=== PATIENT | male | born 1995 | race Caucasian/White ===

== ENCOUNTER 2020-05-17 07:33 | Emergency (ER) | payer BC, SELFPAY ==
[2020-05-17] VITALS (8 sets, daily range): BP systolic 106–144; BP diastolic 71–90; PULSE 70–97; RESP 16–18; TEMP 36.7; O2SAT 95–99; BMI 27.1
--- NOTE | 2020-05-17 07:24 | ECG_ITS ---
APPROVED REPORT Exam: Resting ECG HR:89 bpm ECG Measurements Heart Rate 89 AXES OR 142 P 60 QRSd 88 QRS 61 QT 360 T 50 QTc 438 Conclusion Normal sinus rhythm Normal ECG Electronically signed by : Saul Alvarez, 05/18/2020 11:42:18
[2020-05-17 07:57] LABS: Basophils # 0.1 K/mm3 (0-0.2); Basophils % 0.6 % (0.1-2.0); Eosinophils # 0.2 K/mm3 (0.0-0.4); Eosinophils % 2.2 % (0.1-12.0); Lymphocytes # 3.5 K/mm3 (0.7-4.5); Lymphocytes % 36.8 % (10-50); Mean Corpuscular HGB Conc 33.4 g/dL (31.8-35.4); Mean Corpuscular Hemoglobin 29.3 pg (27.0-31.2); Mean Corpuscular Volume 87.9 fl (80-94); Mean Platelet Volume 7.7 fl (7.4-10.4); Monocytes # 0.5 K/mm3 (0.1-1.0); Monocytes % 5.3 % (1.7-9.3); Neutrophils # 5.3 K/mm3 (1.8-7.8); Neutrophils % 55.2 % (37.0-80.0); Platelet Count 250 K/mm3 (142-424); Red Blood Count 5.46 M/mm3 (4.60-6.20); Red Cell Distribution Width 13.1 % (11.5-17.5); White Blood Count 9.6 K/mm3 (4.8-10.8)
--- NOTE | 2020-05-17 07:58 | XR_ITS ---
PROCEDURE: XR CHEST 2V CLINICAL HISTORY: soa COMPARISON: No exams were available for comparison FINDINGS: The cardiomediastinal silhouette and pulmonary vascularity are within normal limits. The lungs are clear without infiltrates, suspicious nodules, or pleural effusions. No acute bony abnormalities. IMPRESSION: No acute findings. Dictated by: Abiel Hilton MD 05/17/2020 08:21 Abiel Hilton MD in [place] 05/17/2020 08:21
[2020-05-17 08:20] LABS: Troponin I < 0.01 ng/ml (0.00-0.034)
--- NOTE | 2020-05-17 08:28 | HMH.EDGENADL ---
ED Disposition Clinical Impression: Chest heaviness Dyspnea Qualifiers: Dyspnea type: shortness of breath Qualified Code(s): R06.02 - Shortness of breath Disposition: Home, Self-Care Condition on Discharge: Good Instructions: DI for Shortness of Breath, DI for Chest Pain Additional Instructions: Additional instructions for SHORTNESS OF BREATH: See your physician as soon as possible for further evaluation. Return immediately if worsening shortness of breath or if vomiting, chest pain, fever, coughing of blood, or passing out. Additional instructions for CHEST PAIN: See your physician as soon as possible for further evaluation. Return immediately if worsening chest pain, vomiting, shortness of breath, fever, coughing of blood. Referrals: PCP,No [Primary Care Provider] - - Critical Care Critical Care Time: No Attestation: On 05/17/20, the high probability of a clinically significant, sudden or life threatening deterioration of the following system(s) required my full and direct attention, intervention and personal management. The time I documented below is in addition to time spent performing reported procedures but includes the following listed in this critical care notation. Medical Decision Making - Ken Inquiry Pt receiving controlled substance: No Vital Signs: 05/17/20 07:33 05/17/20 07:52 05/17/20 08:00 Temperature 98.0 F Temperature Source Oral Pulse Rate Pulse Rate [Right] 97 H 76 72 Respiratory Rate 16 Blood Pressure Blood Pressure [Right Arm] 144/90 H 129/76 132/78 Blood Pressure Mean Blood Pressure Mean [Right Arm] 108 93 96 Blood Pressure Source [Right Arm] Automatic Cuff Automatic Cuff Automatic Cuff Blood Pressure Position [Right Arm] Sitting Sitting Sitting 02 Sat by Pulse Oximetry 95 96 95 Oxygen Delivery Method Room Air Room Air Room Air 05/17/20 08:31 05/17/20 08:50 05/17/20 08:54 Temperature Temperature Source Pulse Rate 75 Pulse Rate [Right] 79 70 Respiratory Rate Blood Pressure Blood Pressure [Right Arm] 118/84 106/79 L Blood Pressure Mean Blood Pressure Mean [Right Arm] 95 88 Blood Pressure Source [Right Arm] Automatic Cuff Automatic Cuff Blood Pressure Position [Right Arm] Sitting Sitting 02 Sat by Pulse Oximetry 96 95 97 Oxygen Delivery Method Room Air Room Air 05/17/20 08:55 Temperature Temperature Source Pulse Rate Pulse Rate [Right] Respiratory Rate Blood Pressure 119/76 Blood Pressure [Right Arm] Blood Pressure Mean 84 Blood Pressure Mean [Right Arm] Blood Pressure Source [Right Arm] Blood Pressure Position [Right Arm] 02 Sat by Pulse Oximetry Oxygen Delivery Method - Lab Data Lab Results 05/17/20 07:30: WBC 9.6, RBC 5.46, Hgb 16.0, Hct 48.0, MCV 87.9, MCH 29.3, MCHC 33.4, RDW 13.1, Plt Count 250, MPV 7.7, Neut % (Auto) 55.2, Lymph % (Auto) 36.8, [place] % (Auto) 5.3, Eos % (Auto) 2.2, Baso % (Auto) 0.6, Neut # (Auto) 5.3, Lymph # (Auto) 3.5, [place] # (Auto) 0.5, Eos # (Auto) 0.2, Baso # (Auto) 0.1 05/17/20 07:30: Sodium 139, Potassium 4.1, Chloride 108 H, Carbon Dioxide 22, Anion Gap 13.1, BUN 8 L, Creatinine 0.80, Estimated Creat Clear 175, Estimated GFR 117, Est GFR ( Amer) 141, Glucose 107 H, Calcium 9.5 05/17/20 07:30: Troponin I < 0.01 Result diagrams: 05/17/20 07:30 05/17/20 07:30 Orders (Tests/Meds): ORDERS Category Date Time Status Covid-19 Nasal PCR ([facility]) Routine Lab 05/17/20 07:35 Received - Radiology Data #1 Image(s): Chest Image Reviewed: Yes I have reviewed radiologist's interpretation PROCEDURE: XR CHEST 2V CLINICAL HISTORY: soa COMPARISON: No exams were available for comparison FINDINGS: The cardiomediastinal silhouette and pulmonary vascularity are within normal limits. The lungs are clear without infiltrates, suspicious nodules, or pleural effusions. No acute bony abnormalities. IMPRESSION: No acute findings. Dictated
--- NOTE | 2020-05-17 09:06 | PC.NURSE ---
Went into room to reattach vs monitors and pt stated the cuff was too tight and that he wasn't putting it back on. explained to pt that since he came in having chest pain and sob that we needed to continue to monitor him and he stated that he was not putting it back on.
[2020-05-17 09:22] LABS: Anion Gap 13.1 mEq/L (5-15); Blood Urea Nitrogen 8 mg/dl (9-20); Calcium 9.5 mg/dl (8.4-10.2); Carbon Dioxide 22 mmol/L (22.0-30.0); Chloride 108 mmol/L (98-107); Creatinine Clearance Estimated 175 mL/min (50-200); Estimated Glomerular Filt Rate 117 ml/min (>60); GFR (African American) 141 ML/MIN (>60); Glucose 107 mg/dl (74-100); Potassium 4.1 mmoL/L (3.5-5.1); Sodium 139 mmol/L (136-145)
--- NOTE | 2020-05-17 09:43 | PC.NURSE ---
pt still refusing vs monitors at this time.
== END 2020-05-17 10:03 | disposition home or self-care (01) ==
PROVIDERS: Emergency Provider Emergency Medicine
DX: R06.02 Shortness of breath (principal); R07.89 Other chest pain
CPT/HCPCS: 71046; 80048; 84484; 85025; 93005; 99283; U0003

== ENCOUNTER 2023-01-06 10:58 | Emergency (ER) | payer SELFPAY ==
[2023-01-06 11:05] VITALS: BP 131/85; PULSE 100; RESP 18; TEMP 36.7; O2SAT 97; BMI 23.7
[2023-01-06 11:25] LABS: Apearance,Urine Clear (Clear); Color,Urine Yellow (Yellow)
[2023-01-06 11:26] LABS: Bilirubin,Urine Negative (Negative); Blood, Urine Negative (Negative); Glucose,Urine (UA) Negative (Negative); Ketones,Urine Negative (Negative); Protein,Urine Negative (Negative); UTC Leukocyte Esterase,Urine Negative (Negative); UTC Nitrate,Urine Negative (Negative); Urobilinogen,Urine 0.2 EU/dl (0.2)
--- NOTE | 2023-01-06 11:39 | EXP.UTC ---
Discharge Plan Disposition Patient Disposition: Home, Self-Care Condition: Good Referrals Follow up/Referrals: Provider,Referral, [Primary Care Provider] - See instructions Activity Restrictions/Add. Instructions Additional Instructions/Restrictions: Watch what you are eating try to avoid greasy, fried and spicy foods You may call [facility] for appointment the number is [phone] Go straight to the Emergency Room if the symptoms return Follow up with your Family Doctor as recommended Clinical Impressions Clinical Impression: Abdominal discomfort Instructions Patient Instructions: DI for Abdominal Pain-Adult, DI for HIDA Scan, DI for Cholecystitis Discharge ED Provider: Renetta Urbano [facility] General Stated complaint: stomach pain Mode of Arrival: Ambulatory Source of Information: Patient Limitations: No Limitations Time Seen by Provider: 01/06/23 11:10 Description of Symptoms (Recalled from Triage Doc. by RN): Pt states that pain started at right upper quad and radiates to the right lower flank. He stated that is some times radiates from right upper quad to right lower quad. Has gallbladder and appendix still. He describes the pain as a dull. Its better today than it has been. HEENT Symptoms (Recalled from RN notes): No Resp Symptoms (Recalled from RN notes): No Skin Symptoms (Recalled from RN notes): No MS Symptoms (Recalled from RN notes): No Functional Status (Recalled from RN notes): n/a History of Present Illness Provider Complaint: Patient states that on and off for about 2 weeks he has been having pain in his right upper quad that sometimes goes into his back and down into his mid stomach that is worse after eating certain foods States that he did have diarrhea for a couple days last week but that stopped States that he is not having any pain right now but family was concerned and wanted him to come in and get checked Related Data Allergies Allergy/AdvReac Type Severity Reaction Status Date / Time No Known Allergies Allergy Verified 01/06/23 11:20 Worker's Comp Is this a Worker's Comp case?: No [facility] Disclaimer: The information contained in this section may have been updated after the patient was seen, as this information can be updated by other users. Social History Smoking Status: Unknown if ever smoked alcohol intake: never current occupational status: employed and unemployed Travel in the last 8 weeks: None ROS Obtained: Yes All systems reviewed & no additional complaints except as documented and Yes Systems reviewed as appropriate & no additional complaints except as documented Constitutional Constitutional: Reports system reviewed and no additional complaints, except as documented, Reports as per HPI, Denies body ache, Denies chills and Denies fever(s) ENT Ears, Nose, Mouth, and Throat: Reports system reviewed and no additional complaints, except as documented and Reports as per HPI Cardiovascular Cardiovascular: Reports system reviewed and no additional complaints, except as documented and Reports as per HPI Respiratory Respiratory: Reports system reviewed and no additional complaints, except as documented and Reports as per HPI Gastrointestinal Gastrointestingal: Reports system reviewed and no additional complaints, except as documented, as per HPI, abdominal pain and diarrhea (last week not right now); Denies bloating, change in bowel habits, coffee ground emesis, constipation, heartburn, hematochezia, melena, nausea, reflux or vomiting Genitourinary Male Genitourinary: Reports system reviewed and no additional complaints, except as documented and Reports as per HPI Musculoskeletal Musculoskeletal: Reports system reviewed and no additional complaints, except as documented and Reports as per HPI Integumentary/Breasts Skin/Breast: Reports system reviewed and no additional complaints, except as documented and Reports as per HPI Neurologic Neurologic: Reports system revi
[2023-01-06 11:50] VITALS: BP 131/85; PULSE 100; RESP 18; TEMP 36.7; O2SAT 97
== END 2023-01-06 11:55 | disposition home or self-care (01) ==
PROVIDERS: Emergency Provider Nurse Practitioner
DX: R10.11 Right upper quadrant pain (principal)
CPT/HCPCS: 81003; 99203; 99212; G0463

== ENCOUNTER 2023-01-08 22:07 | Emergency (ER) | payer SELFPAY ==
[2023-01-08 22:07] VITALS: BP 141/86; PULSE 98; RESP 16; TEMP 36.8; O2SAT 99; BMI 23.7
[2023-01-08 22:15] VITALS: BP 130/85; PULSE 91; O2SAT 98
[2023-01-08 22:30] VITALS: BP 124/83; PULSE 83; O2SAT 98
--- NOTE | 2023-01-08 22:44 | HMH.EDGENADL ---
Discharge Plan Disposition Patient Disposition: Home, Self-Care Condition: Good Prescriptions Prescriptions: New pantoprazole 40 mg tablet,delayed release (DR/EC) 40 mg PO DAILY Qty: 30 0RF Referrals Follow up/Referrals: Dann Ortiz DO [Staff Physician] - See instructions Provider,Referral, [Primary Care Provider] - See instructions Activity Restrictions/Add. Instructions Additional Instructions/Restrictions: You were evaluated in the emergency department today. Please follow-up closely with a primary care provider for further evaluation and management of your recurrent abdominal pain. We have provided you with information for Dr. Ortiz. Given prescription and take as prescribed. Return to the emergency department for new or worsening symptoms. Clinical Impressions Clinical Impression: Intermittent upper abdominal pain Instructions Patient Instructions: DI for Acute Abdominal Pain Discharge ED Provider: Adriana King General Adult HPI General Chief complaint: Abdominal Pain Stated complaint: abd pain Time Seen by Provider: 01/08/23 22:17 Mode of Arrival: Ambulatory Source of Information: Patient Limitations: No Limitations Description of Symptoms (Recalled from ER Triage Doc. by RN): pt reports right upper abd pain on and off for 1 month, reports worse after eating greasy spicey food, denies n/v/d now. has not tried any medications. History of Present Illness HPI narrative: This patient is a 27-year-old male with history of marijuana use presenting to the emergency department for evaluation with concern for right upper quadrant abdominal pain that has been going on and off for approximately 1 month. He notes that it gets worse whenever he eats greasy or spicy food. It is currently flaring up right now, he states. He denies any fevers, chills, nausea, vomiting, diarrhea, or other concerns. No medications tried. He also notes that he does smoke marijuana, and he gets worse with smoking. His friend had similar symptoms, so they both decided to come into the emergency department for evaluation today. Related Data Previous Rx's Medication Instructions Recorded pantoprazole 40 mg tablet,delayed 40 mg PO DAILY #30 tabs 01/08/23 release Allergies Allergy/AdvReac Type Severity Reaction Status Date / Time No Known Allergies Allergy Verified 01/06/23 11:20 [facility] Disclaimer: The information contained in this section may have been updated after the patient was seen, as this information can be updated by other users. Social History Smoking Status: Current every day smoker alcohol intake: never current occupational status: employed and unemployed Travel in the last 8 weeks: None ROS Obtained: Yes All systems reviewed & no additional complaints except as documented Physical Exam General General appearance: alert and in no apparent distress Head Head exam: atraumatic and normocephalic Eye Eye exam: Present normal appearance, PERRL and EOMI ENT ENT exam: Present normal exam, normal oropharynx, mucous membranes moist and normal external ear exam Neck Neck exam: Present normal inspection, full ROM and trachea midline; Absent tenderness Chest Chest inspection: Present normal inspection and symmetric chest wall rise; Absent tenderness Respiratory Respiratory exam: Present normal lung sounds bilaterally; Absent respiratory distress, wheezes, stridor or accessory muscle use Cardiovascular Cardiovascular exam: Present regular rate and normal rhythm Abdominal Exam Abdominal exam: Present soft, tenderness (Mild right upper quadrant tenderness) and normal bowel sounds; Absent distention, guarding, rebound or rigidity Extremities Exam Extremities exam: Present normal inspection, full ROM and normal capillary refill; Absent tenderness or edema Back Exam Back exam: Present normal inspection and full ROM; Absent tenderness Neurological Exa
[2023-01-08 22:45] VITALS: BP 115/81; PULSE 89; O2SAT 97
[2023-01-08 23:00] VITALS: BP 123/77; PULSE 81; O2SAT 96
[2023-01-08 23:26] VITALS: BP 121/77; PULSE 80; RESP 16; TEMP 36.7; O2SAT 95
== END 2023-01-08 23:27 | disposition home or self-care (01) ==
PROVIDERS: Emergency Provider Emergency Medicine
DX: R10.11 Right upper quadrant pain (principal); F17.210 Nicotine dependence, cigarettes, uncomplicated; F12.90 Cannabis use, unspecified, uncomplicated
CPT/HCPCS: 99284

== ENCOUNTER → 2023-01-21 08:21 | Outpatient (CLI) | payer SELFPAY ==
--- NOTE | 2023-01-21 08:21 | US_ITS ---
FINAL REPORT CLINICAL HISTORY: Abd pain COMPARISON: None FINDINGS: Sonographic images of the right upper quadrant were obtained. The pancreas is normal in appearance.The liver has an unremarkable appearance.The gallbladder appears normal without evidence of gallstones.There is no evidence of biliary ductal dilatation.The common duct measures 4mm. Limited images of the right kidney are unremarkable. IMPRESSION: Unremarkable right upper quadrant ultrasound. Reviewed, Interpreted and Dictated by Steve Norman III, MD Transcribed by Karina Francisco Authenticated and [facility]
== END ==
LOC: RAD 08:21
PROVIDERS: PCP Internal Medicine; Visit Provider Internal Medicine
DX: R10.9 Unspecified abdominal pain (principal)
CPT/HCPCS: 76705